=== PATIENT | male | born 1975 | race American Indian/Alaskan Native ===

== ENCOUNTER 2018-10-11 08:37 | Emergency (ER) | payer OTHER ==
[2018-10-11 08:45] VITALS: BP 108/61
[2018-10-11] MEDS ORDERED: XYLOCAINE 1% 20 mL INFILTRATI ONE (09:33)
[2018-10-11] MEDS ORDERED: TRIPLE ANTIBIOTIC TP ONE (09:33)
[2018-10-11] MEDS ORDERED: BOOSTRIX IM ONE (09:33)
[2018-10-11] MEDS ORDERED: IBUPROFEN PO ONE (09:33)
[2018-10-11] MEDS ORDERED: ANCEF IM ONE (09:34)
[2018-10-11] MEDS ORDERED: ZOFRAN ODT PO ONE (09:35)
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
[2018-10-11] MEDS ORDERED: NACL 0.9% IR ONE (10:00)
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
[2018-10-11] MEDS ORDERED: NORCO 7.5/325 PO ONE (10:50)
== END 2018-10-11 11:25 | disposition home or self-care (01) ==
LOC: ED 08:37
DX: S81.011A Laceration without foreign body, right knee, initial encounter (principal); F17.200 Nicotine dependence, unspecified, uncomplicated; F12.10 Cannabis abuse, uncomplicated; W26.0XXA Contact with knife, initial encounter; Y93.89 Activity, other specified; Y92.89 Other specified places as the place of occurrence of the external cause; Y99.8 Other external cause status
CPT/HCPCS: 12001; 73560; 90471; 90715; 96372; 99283; J0690; A6250; Q0162

== ENCOUNTER 2018-10-18 12:41 | Emergency (ER) | payer OTHER ==
[2018-10-18 12:46] VITALS: BP 137/84
--- NOTE | 2018-10-18 12:57 | Emergency Department Report ---
Suture/Staple Removal - HPI Chief Complaint: Laceration/Recheck/Suture Stated Complaint: STITCHES REMOVED Time Seen by Provider: 10/18/18 12:56 When Sutures or [place] Placed: 5-7 Days Ago Wound Location: R KNEE ED Review of Systems ROS: Stated complaint: STITCHES REMOVED Other details as noted in HPI Comment: All other systems reviewed and negative ED Past Medical Hx - Past Medical History Previous Medical History?: No - Surgical History Past Surgical History?: No - Social History Smoking Status: Never Smoker Substance Use Type: None - Medications Home Medications: Home Medications Medication Instructions Recorded Confirmed Last Taken Type cephALEXin [Keflex] 500 mg PO Q12HR #20 cap 10/11/18 Unknown Rx traMADol [Ultram] 50 mg PO Q6HR PRN #10 tablet 10/11/18 Unknown Rx Suture Removal Exam - Exam General: Vital signs noted. No distress. Alert and acting appropriately. Wound: No Pathologic Erythema, No Tenderness, No Drainage, No Pus, No Wound Dehiscence Other Systems: All other systems reviewed and are unremarkable. ED Course Vital Signs 10/18/18 12:45 Temperature 98.2 F Pulse Rate 62 Respiratory 16 Rate Blood Pressure 137/84 O2 Sat by Pulse 96 Oximetry ED Recheck MDM - Core Measures Measure Exclusions: not indicated - Differential Diagnosis Suture/Staple Removal - Medical Decision Making SUTURES REMOVED WITHOUT DIFFICULTY DC HOME WITH DC PLAN OF CARE Vital Signs 10/18/18 12:45 Temperature 98.2 F Pulse Rate 62 Respiratory 16 Rate Blood Pressure 137/84 O2 Sat by Pulse 96 Oximetry Critical care attestation.: If time is entered above; I have spent that time in minutes in the direct care of this critically ill patient, excluding procedure time. ED Disposition Clinical Impression: Visit for suture removal Disposition: DC-01 TO HOME OR SELFCARE Is pt being admited?: No Does the pt Need Aspirin: No Condition: Stable Instructions: Suture Removal (ED) Time of Disposition: 12:57
== END 2018-10-18 13:49 | disposition home or self-care (01) ==
LOC: ED 12:41
DX: Z48.02 Encounter for removal of sutures (principal)